=== PATIENT | male | born 1980 | race Caucasian/White ===

== ENCOUNTER 2024-04-09 14:00 | Outpatient (RCR) | payer MEDICAID, SELFPAY ==
--- NOTE | 2024-04-01 14:09 | PT.OIERPT ---
PT OP Initial Eval Patient Information Outpatient Physical Therapy Treatment Date: 04/01/24 Visit Reasons: GAIT INSTABILITY Medical Diagnosis: R26.1 Treatment Dx #1: gait instability Treatment Dx #2: balance impairment Start of Care: 04/01/24 Date of Onset: 1.5 yrs ago Smoking Status Smoking Status: Light (< 1 pack/day) Cessation Counseling Provided: ALMA was advised that quitting smoking is the single most important factor to protect the health of themselves and their family. Discussed the benefits of quitting smoking with patient. Encouraged patient to quit smoking and provided Cessation assistance materials and resources. Tobacco Use: Cigarette Years smoked: 26 Are you interested in quitting?: Yes Would you like additional Smoking Cessation Counseling?: Yes Initial Assessment Subjective: Pt is 44 yr old male who reports slow onset of imbalance about 1.5 yrs ago attributed to neuropathy. He presents ambulating with 4WW today that he uses manager multimedia to ambulate. He uses hand support to steady him and he is independent with ADL's with difficulty and uses hand rails to shower. 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 Gait: ataxic gait 30 second chair to stand: unable due to LOB ? Tinetti: 07/17 high fall risk ? SL balance: R unable, L unable with LOB on each ? Tandem stance: LOB on even surface ? Uneven surface: unable ? Strength of LE's: ? L hamstrings: 3+/5, R 3+/5 with jerky isometric hold ? B quads: 3+/5 Assessment: Pt presents with ataxic gait pattern and poor static standing and dynamic balance with 4WW. Pt scored very low on the Tinetti as a high fall risk and was unable to stand without hand support to do the chair to stand test. Pt may benefit from skilled therapy to meet goals and has poor/fair rehab potential. Short Term and Assisted Goals 1. Independent with HEP ? 2. Ambulate x100' with walker and no LOB ? 3. Stand without LOB on uneven surface without hands for 10 seconds ? 4. Improved Tinetti score to 12/17 Treatment Plan 1. Manual therapy ? 2. Therex ? 3. Modalities as indicated, moist heat, ice, estim 4. Neuromuscular reeducation Frequency and Duration: 1-2x a week for 6 sessions plus evaluation Certification Dates: 04/01/24 to 06/28/24 Procedure Charges OP PT Eval Mod Complex 30 minutes: Yes
--- NOTE | 2024-04-09 14:58 | PT.ODAYNRPT ---
PT Outpatient Daily Note OP Daily Note Outpatient Physical Therapy Treatment Date: 04/09/24 Visit Reasons: GAIT INSTABILITY Subjective: No new complaints or concerns. Objective: Please see flow sheet for ther ex list. Assessment: Pt tolerated interventions with fatigue, requires short rest breaks in between exercises. Plan: Continue with poC. Length of Time (minutes) of Treatment: 30 Minutes Procedure Charges Therapeutic Exercise 30 minutes: Yes
== END 2024-04-19 23:59 | disposition home or self-care (01) ==
LOC: CPTX 14:00
PROVIDERS: PCP Physician Assistant; Referring Provider Physician Assistant; Visit Provider Physician Assistant
DX: R26.89 Other abnormalities of gait and mobility (principal); R26.1 Paralytic gait; Z71.6 Tobacco abuse counseling; F17.210 Nicotine dependence, cigarettes, uncomplicated; I10 Essential (primary) hypertension
CPT/HCPCS: 97110; 97162

== ENCOUNTER 2024-05-07 14:30 | Outpatient (RCR) | payer MEDICAID, SELFPAY ==
--- NOTE | 2024-04-23 14:29 | PT.ODAYNRPT ---
PT Outpatient Daily Note OP Daily Note Outpatient Physical Therapy Treatment Date: 04/23/24 Visit Reasons: Gait instability Subjective: No new complaints. Objective: Please see flow sheet for ther ex list. Assessment: Interventions completed alternating sitting and standing to maximize pt participation. Plan: Continue with POC. Length of Time (minutes) of Treatment: 30 Minutes Procedure Charges Therapeutic Exercise 30 minutes: Yes
--- NOTE | 2024-05-07 15:06 | PT.ODAYNRPT ---
PT Outpatient Daily Note OP Daily Note Outpatient Physical Therapy Treatment Date: 05/07/24 Visit Reasons: Gait instability Subjective: Pt reports his balance is maybe a little better Objective: See F/S for therex Assessment: Pt has delayed exaggerated ankle reactions to maintain balance. Poor single leg and tandem stance balance. Plan: Continue per POC Length of Time (minutes) of Treatment: 30 Minutes Procedure Charges Therapeutic Exercise 30 minutes: Yes
== END 2024-05-20 23:59 | disposition home or self-care (01) ==
LOC: CPTX 14:30
PROVIDERS: PCP Physician Assistant; Referring Provider Physician Assistant; Visit Provider Physician Assistant
DX: R26.89 Other abnormalities of gait and mobility (principal); R26.1 Paralytic gait; I10 Essential (primary) hypertension; F17.210 Nicotine dependence, cigarettes, uncomplicated; Z71.6 Tobacco abuse counseling
CPT/HCPCS: 97110

== ENCOUNTER 2024-05-30 14:00 | Outpatient (RCR) | payer MEDICAID, SELFPAY ==
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
== END 2024-06-19 23:59 | disposition home or self-care (01) ==
LOC: CPTX 14:00
PROVIDERS: PCP Physician Assistant; Referring Provider Physician Assistant; Visit Provider Physician Assistant
DX: R26.89 Other abnormalities of gait and mobility (principal); I10 Essential (primary) hypertension
CPT/HCPCS: 97110

== ENCOUNTER 2024-07-16 10:54 | Outpatient (RCR) | payer MEDICAID, SELFPAY ==
--- NOTE | 2024-07-16 18:49 | PT.ODS1RPT ---
PT OP Progress/Discharge Note Date of Service: 07/16/24 Progress Note/DC Note Progress Note/Discharge Note: DC Note Patient Information Visit Reasons: Gait instability Service Continue Service or Discharge: Discharge Status Subjective: Pt reports he is ambulating about the same, maybe the legs are stronger with getting up out of a chair. Objective: 30 second chair to stand test: 8x with hands to steady him Tinetti: 07/17 high fall risk Tandem stance: unable without hands LE strength: Quads: 4-/5 HS: 4-/5 Assessment: Pt has attended 6/ Rx sessions with limited progress with therapy goals due to continued ataxic gait pattern and gait instability. Pt is a high fall risk and needs the walker or hand support in standing. He isn't making progress with goals due to underlying condition and Tinetti score is the same. Plan: D/C Procedure Charges Therapeutic Exercise 30 minutes: Yes
== END 2024-07-20 23:59 | disposition home or self-care (01) ==
LOC: CPTX 10:54
PROVIDERS: PCP Physician Assistant; Referring Provider Physician Assistant; Visit Provider Physician Assistant
DX: R26.89 Other abnormalities of gait and mobility (principal); R26.1 Paralytic gait
CPT/HCPCS: 97110